=== PATIENT | female | born 1990 | race Caucasian/White ===

== ENCOUNTER 2021-12-07 11:29 | Emergency (ER) | payer BC, OTHER ==
[2021-12-07 11:36] VITALS: BMI 29.2
[2021-12-07 13:20] LABS: BASO % 1.4 % (0-2.0); HEMATOCRIT 26.5 % (32.4-45.2); LYMPH % 41.4 % (8-40); MCH 20.1 pg (25.7-33.7); MCHC 30.1 g/dl (32.0-36.0); MEAN CELL VOLUME 66.6 fl (80-96); MEAN PLT VOLUME 7.3 fl (7.5-11.1); MONO % 5.8 % (3.8-10.2); NEUT % 47.4 % (42.8-82.8); PLATELET COUNT 516 10^3/uL (134-434); RBC 3.98 M/mm3 (3.60-5.2); RDW 17.7 % (11.6-15.6); WHITE BLOOD COUNT 6.8 K/mm3 (4.0-10.0)
[2021-12-07 13:45] LABS: CHLORIDE 110 mmol/L (98-107); SODIUM 140 mmol/L (136-145)
[2021-12-07 13:47] LABS: ANION GAP 4 MMOL/L (8-16); CALCIUM 8.6 mg/dL (8.5-10.1); CO2 27 mmol/L (21-32); GLUCOSE,RANDOM 78 mg/dL (74-106); MAGNESIUM 2.4 mg/dL (1.8-2.4)
[2021-12-07 13:48] LABS: ALBUMIN 3.4 g/dl (3.4-5.0)
[2021-12-07 13:50] LABS: SGPT/ALT 29 U/L (13-61)
[2021-12-07 13:51] LABS: CREATININE 0.6 mg/dL (0.55-1.3); SGOT/AST 25 U/L (15-37)
[2021-12-07 13:52] LABS: BILIRUBIN,TOTAL 0.2 mg/dL (0.2-1); TOT PROT 6.4 g/dl (6.4-8.2)
[2021-12-07 13:53] LABS: ALK PHOS 87 U/L (45-117)
[2021-12-07 14:22] LABS: ANISOCYTOSIS 1+; MACROCYTOSIS 0; PLATELET ESTIMATE INCREASED
[2021-12-08 06:55] VITALS: TEMP 98
[2021-12-08 17:26] VITALS: BP 127/77; PULSE 60
== END 2021-12-08 15:05 | disposition short-term general hospital (02) ==
LOC: JER 11:29
DX: R45.851 Suicidal ideations (principal)
CPT/HCPCS: 36415; 80053; 80307; 83735; 84443; 84702; 84703; 85025; 93005; 93010; 99284-25; C9803; U0003; U0005